=== PATIENT | male | born 1975 | race African-American/Black ===

== ENCOUNTER 2017-01-07 09:08 | Day surgery (SDC) | payer OTHER ==
[2017-01-06 10:25] VITALS: BMI 38.1
[2017-01-07] MEDS ORDERED: CEFAZOLIN/Water 2 GM/20 ML SYRINGE ONE (09:15)
[2017-01-07] MEDS ORDERED: Bupivacaine/Epinephrine 0.25% 30 ML VIAL ONE (09:28)
[2017-01-07] MEDS ORDERED: Bacitracin Zinc Ointment 30 gm TUBE ONE (09:28)
[2017-01-07 09:32] LABS: #Eosinphils 0.1 thou/uL (0.0-0.7); #Monocytes 0.4 thou/uL (0.11-0.59); %Basophils 0.9 % (0.0-1.0); %Eosinophils 1.4 % (0.0-10.0); %Lymphocytes 44.2 % (21.0-51.0); %Monocytes 8.5 % (0.0-10.0); Hematocrit 48.1 % (42.0-52.0); White Blood Cell (WBC) Count 4.5 thou/uL (4.8-10.8)
[2017-01-07 09:51] LABS: Anion Gap 11 mmol/L (10-20); BUN (Urea Nitrogen) 13 mg/dL (8.9-20.6); Calc. Creatinine Clearance 171 mL/min (70-130); Calcium 9.5 mg/dL (7.8-10.44); Carbon Dioxide 28 mmol/L (22-29); Chloride 103 mmol/L (98-107); Estimated GFR-MDRD 89
[2017-01-07] MEDS ORDERED: Fentanyl 250 MCG/5 ML VIAL ONE (09:56)
[2017-01-07] MEDS ORDERED: Fentanyl 100 MCG/2 ML VIAL ONE (15:11)
[2017-01-07] MEDS ORDERED: Propofol 200 MG/20 ML VIAL ONE (15:47)
[2017-01-07] MEDS ORDERED: Ondansetron HCl/PF 4 MG/2 ML Vial ONE (15:47)
[2017-01-07] MEDS ORDERED: Naloxone HCl 0.4 mg/ml Vial ONE (15:47)
[2017-01-07] MEDS ORDERED: PHENYLEPHRINE-NS 100 MCG/ML 10 ML SYRINGE ONE (15:47)
[2017-01-07] MEDS ORDERED: diphenhydrAMINE 50 MG/ML VIAL ONE (15:47)
[2017-01-07] MEDS ORDERED: Lidocaine 1% PF 5 ML VIAL ONE (15:47)
[2017-01-07] MEDS ORDERED: Ketorolac Tromethamine 30 MG/ML VIAL ONE (15:47)
[2017-01-07] MEDS ORDERED: Ondansetron ODT 4 MG TAB ONE (16:06)
== END 2017-01-07 16:27 | disposition home or self-care (01) ==
LOC: SDC 09:08
PROVIDERS: ATTEND Surgery
PROC: 0JB70ZZ Excision of Back Subcutaneous Tissue and Fascia, Open Approach (ICD-10-PCS; principal; 2017-01-07)
DX: R22.9 Localized swelling, mass and lump, unspecified (principal); E11.9 Type 2 diabetes mellitus without complications; I10 Essential (primary) hypertension; Z79.84 Long term (current) use of oral hypoglycemic drugs; Z79.899 Other long term (current) drug therapy; M79.81 Nontraumatic hematoma of soft tissue
CPT/HCPCS: 36415; 80048; 85025; 88304; 88305; 88307; 88331; 88341; 88342; 88360; 96374; J1200; J1885; J2001; J2310; J2405; J2704; J3010; Q0162

== ENCOUNTER 2017-01-20 11:57 | Inpatient (IN) | payer OTHER, SELFPAY ==
[2017-01-20 12:42] LABS: #Eosinphils 0.1 thou/uL (0.0-0.7); #Lymphocytes 1.7 thou/uL (1.20-3.40); #Monocytes 0.7 thou/uL (0.11-0.59); #Neutrophils 4.8 thou/uL (1.40-6.50); %Basophils 0.2 % (0.0-1.0); %Eosinophils 1.2 % (0.0-10.0); %Lymphocytes 22.6 % (21.0-51.0); Hematocrit 40.6 % (42.0-52.0); Mean Platelet Volume 6.7 fL (7.4-10.4); White Blood Cell (WBC) Count 7.3 thou/uL (4.8-10.8)
[2017-01-20 12:59] LABS: Lactic Acid - Sepsis 1.1 mmol/L (0.5-2.2)
[2017-01-20 13:01] LABS: Anion Gap 11 mmol/L (10-20); BUN (Urea Nitrogen) 12 mg/dL (8.9-20.6); Calc. Creatinine Clearance 0 mL/min (70-130); Calcium 9.5 mg/dL (7.8-10.44); Carbon Dioxide 32 mmol/L (22-29); Chloride 98 mmol/L (98-107); Estimated GFR-MDRD 80
[2017-01-20 15:53] LABS: Hemoglobin A1c 6.9 % (4.0-6.0)
[2017-01-20] MEDS ORDERED: Piperacillin/Tazobactam 3.375 GM in Sodium Chloride 0.9% 100 ML IVPB SCH ×2 (16:00→23:59)
[2017-01-20] MEDS ORDERED: PHENYLEPHRINE-NS 100 MCG/ML 10 ML SYRINGE ONE (16:39)
[2017-01-20] MEDS ORDERED: Propofol 200 MG/20 ML VIAL ONE (16:39)
[2017-01-20] MEDS ORDERED: Lidocaine 1% PF 5 ML VIAL ONE (16:39)
[2017-01-20] MEDS ORDERED: Succinylcholine Chloride 20 MG/ML 10 ml SYRINGE FS ONE (16:39)
[2017-01-20] MEDS ORDERED: Ondansetron HCl/PF 4 MG/2 ML Vial ONE (16:39)
[2017-01-20] MEDS ORDERED: Fentanyl 100 MCG/2 ML VIAL ONE (19:15)
[2017-01-20] MEDS ORDERED: Fentanyl 250 MCG/5 ML VIAL ONE (19:34)
[2017-01-20] MEDS ORDERED: Bupivacaine/Epinephrine 0.25% 30 ML VIAL ONE (20:30)
[2017-01-20] MEDS ORDERED: Ondansetron HCl/PF 4 MG/2 ML Vial IVP PRN (21:47)
[2017-01-20] MEDS ORDERED: Dextrose 50% Abboject 50 ML SYRINGE IVP PRN (21:49)
[2017-01-20] MEDS ORDERED: Dextrose 5% in Water 1,000 ML IV PRN (21:49)
[2017-01-20] MEDS ORDERED: HYDROcodone/Acetaminophen 7.5/325 mg Tablet PO PRN (21:50)
[2017-01-20] MEDS ORDERED: Morphine 4 MG/ML VIAL SLOW IVP PRN ×3 (21:51→21:52)
[2017-01-20] MEDS ORDERED: Ondansetron HCl/PF 4 MG/2 ML Vial SLOW IVP PRN (21:53)
[2017-01-21] MEDS: HYDROcodone/Acetaminophen 7.5/325 mg Tablet PO PRN ×3 (00:45→21:03)
[2017-01-21] MEDS: Sodium Chloride 0.9% 1,000 ML IV SCH ×5 (00:46→23:24)
[2017-01-21] MEDS: Piperacillin/Tazobactam 3.375 GM in Sodium Chloride 0.9% 100 ML IVPB SCH ×4 (01:26→21:05)
[2017-01-21 02:02] VITALS: BMI 38.7
[2017-01-21 05:42] LABS: #Eosinphils 0.1 thou/uL (0.0-0.7); #Lymphocytes 2.2 thou/uL (1.20-3.40); #Monocytes 1.2 thou/uL (0.11-0.59); #Neutrophils 7.8 thou/uL (1.40-6.50); %Eosinophils 0.5 % (0.0-10.0); %Lymphocytes 19.8 % (21.0-51.0); %Monocytes 10.4 % (0.0-10.0); Hematocrit 35.3 % (42.0-52.0); Red Blood Cell (RBC) Count 3.81 mill/uL (4.70-6.10); White Blood Cell (WBC) Count 11.2 thou/uL (4.8-10.8)
[2017-01-21 05:50] LABS: Anion Gap 9 mmol/L (10-20); BUN (Urea Nitrogen) 13 mg/dL (8.9-20.6); Calc. Creatinine Clearance 142 mL/min (70-130); Calcium 8.8 mg/dL (7.8-10.44); Carbon Dioxide 31 mmol/L (22-29); Chloride 99 mmol/L (98-107); Estimated GFR-MDRD 71
[2017-01-21] MEDS: Insulin Regular 300 UNITS/3 ML VIAL SC PRN ×3 (06:43→18:07)
[2017-01-21] MEDS: Pioglitazone HCl 15 MG TAB PO SCH (08:22)
[2017-01-21] MEDS: glipiZIDE 5 MG TAB PO SCH (08:22)
[2017-01-21] MEDS: Atorvastatin Calcium 20 MG TAB PO SCH (08:22)
[2017-01-21] MEDS: Lisinopril/Hydrochlorothiazide 20/25 mg Tablet PO SCH (08:23)
[2017-01-21] MEDS: Enoxaparin Sodium 40 MG/0.4 ML SYRINGE SC SCH (08:24)
[2017-01-21] MEDS ORDERED: Sodium Chloride 0.9% 1,000 ML IV SCH (09:15)
[2017-01-21] MEDS: Vancomycin HCl 2 GM, Admixture Fee 1 EACH in Sodium Chloride 0.9% 500 ML IVPB SCH ×2 (09:56→22:18)
[2017-01-22] MEDS: Piperacillin/Tazobactam 3.375 GM in Sodium Chloride 0.9% 100 ML IVPB SCH ×2 (01:46→10:00)
[2017-01-22] MEDS ORDERED: Clopidogrel Bisulfate 75 MG TAB ONE (06:51)
[2017-01-22] MEDS: Insulin Regular 300 UNITS/3 ML VIAL SC PRN ×2 (07:05→16:52)
[2017-01-22] MEDS: Pioglitazone HCl 15 MG TAB PO SCH (08:37)
[2017-01-22] MEDS: glipiZIDE 5 MG TAB PO SCH (08:37)
[2017-01-22] MEDS: Lisinopril/Hydrochlorothiazide 20/25 mg Tablet PO SCH (08:37)
[2017-01-22] MEDS: Atorvastatin Calcium 20 MG TAB PO SCH (08:38)
[2017-01-22] MEDS: Enoxaparin Sodium 40 MG/0.4 ML SYRINGE SC SCH (08:39)
[2017-01-22] MEDS: Sodium Chloride 0.9% 1,000 ML IV SCH (10:00)
[2017-01-22] MEDS ORDERED: Lidocaine 4% Topical Sol 50 ML BOT TOP PRN (11:43)
[2017-01-22] MEDS: HYDROcodone/Acetaminophen 7.5/325 mg Tablet PO PRN ×2 (11:44→20:40)
[2017-01-22] MEDS ORDERED: Morphine 4 MG/ML VIAL IM PRN (11:47)
[2017-01-22] MEDS: Vancomycin HCl 2 GM, Admixture Fee 1 EACH in Sodium Chloride 0.9% 500 ML IVPB SCH (11:48)
--- NOTE | 2017-01-22 12:09 | PRG ---
DATE OF SERVICE: 01/22/2017 SUBJECTIVE: Mr. Cr is feeling okay. Pain is under control. He is tolerating his VAC change and the wound appears clean. There is no odor, no purulent drainage, his cultures are growing MSSA and Acinetobacter, both are sensitive to fluoroquinolones. He has been afebrile. His vital signs are stable. Blood sugars have been in the 150-200 range. Creatinine yesterday was up a little bit, but he did get some extra IV fluids, so I am going to recheck labs in the morning. ASSESSMENT: Infected seroma of the back following excision of a massive fibroma. The patient does not have coverage for home wound VAC and we are applying for a [facility] wound VAC. We expect that this will be approved, but will likely take up to a week to approve. I am going to switch him to oral antibiotics since his IV has come out and his bacteria are sensitive to fluoroquinolones. We will discontinue his IV medications and convert him to all oral medications with IM morphine if needed for breakthrough pain for VAC changes. At this point, we are just awaiting approval for a home wound VAC for management of this large wound. We did discuss the possibility of doing wet-to- dry dressings, but in my opinion, this would significantly delay healing of the wound and the patient does not feel that her or his can do this. SUDHIR
--- NOTE | 2017-01-22 13:26 | OP ---
PROCEDURE: Incision, drainage, washout and VAC dressing placement for infected seroma of the right back PREOPERATIVE DIAGNOSIS: Infected seroma of right back. POSTOPERATIVE DIAGNOSIS: Infected seroma of the right back. HISTORY: Mr. Cr is a 42-year-old man who underwent excision of a massive fibroma from his right back. He developed pain and swelling 2 days before his presentation and was found to have evidence of an infected seroma. Recommendation was made to proceed to the operating room for incision, drainage , and washout due to the large size of the wound, with postoperative VAC placement. DESCRIPTION OF PROCEDURE: After informed consent was obtained and appropriate preoperative antibiotics administered, the patient was taken to the operating room. He was placed in a supine position and general endotracheal anesthesia was administered. He was then placed in the left lateral decubitus position with appropriate padding and elevation of his extremities and axillary padding. He was prepped and draped in a standard sterile fashion and the previous incision reopened centrally. A large seroma cavity was encountered. The MARCY drain was appropriately positioned within the seroma cavity, but there was some gelatinous fluid within the cavity which was likely making the MARCY drainage ineffective. The MARCY drain was removed and the cavity was completely evacuated. Cultures were sent and the wound was pulsavaced to clear. There were no areas of active bleeding and no asael purulence or odor, just slightly cloudy serosanguineous fluid and gelatinous material within the wound. A VAC dressing was then placed and the patient was extubated and taken to the recovery room in good condition. Estimated blood loss was minimal. Specimen is seroma fluid for Gram stain and culture. There were no complications. [facility]
[2017-01-23] MEDS: glipiZIDE 5 MG TAB PO SCH (08:13)
[2017-01-23] MEDS: Atorvastatin Calcium 20 MG TAB PO SCH (08:13)
[2017-01-23] MEDS: Lisinopril/Hydrochlorothiazide 20/25 mg Tablet PO SCH (08:13)
[2017-01-23] MEDS: Pioglitazone HCl 15 MG TAB PO SCH (08:13)
[2017-01-23] MEDS: Enoxaparin Sodium 40 MG/0.4 ML SYRINGE SC SCH (08:15)
[2017-01-23 09:58] LABS: #Eosinphils 0.1 thou/uL (0.0-0.7); #Lymphocytes 1.6 thou/uL (1.20-3.40); #Monocytes 0.4 thou/uL (0.11-0.59); #Neutrophils 3.2 thou/uL (1.40-6.50); %Basophils 0.4 % (0.0-1.0); %Eosinophils 2.4 % (0.0-10.0); %Monocytes 7.1 % (0.0-10.0); Hematocrit 37.7 % (42.0-52.0); Mean Platelet Volume 6.4 fL (7.4-10.4); Red Blood Cell (RBC) Count 4.08 mill/uL (4.70-6.10); White Blood Cell (WBC) Count 5.3 thou/uL (4.8-10.8)
[2017-01-23 10:09] LABS: Anion Gap 9 mmol/L (10-20); BUN (Urea Nitrogen) 9 mg/dL (8.9-20.6); Calc. Creatinine Clearance 172 mL/min (70-130); Carbon Dioxide 31 mmol/L (22-29); Chloride 104 mmol/L (98-107); Estimated GFR-MDRD 89
[2017-01-23] MEDS: HYDROcodone/Acetaminophen 7.5/325 mg Tablet PO PRN (20:33)
[2017-01-23] MEDS ORDERED: Calcium Carbonate 500 MG ChewTAB PO PRN ×2 (23:07→23:10)
[2017-01-24] MEDS: Saccharomyces boulardii 250 MG CAP PO SCH (08:32)
[2017-01-24] MEDS: glipiZIDE 5 MG TAB PO SCH (08:32)
[2017-01-24] MEDS: Atorvastatin Calcium 20 MG TAB PO SCH (08:32)
[2017-01-24] MEDS: Lisinopril/Hydrochlorothiazide 20/25 mg Tablet PO SCH (08:32)
[2017-01-24] MEDS: Pioglitazone HCl 15 MG TAB PO SCH (08:33)
[2017-01-24] MEDS: Enoxaparin Sodium 40 MG/0.4 ML SYRINGE SC SCH (08:33)
[2017-01-24] MEDS: HYDROcodone/Acetaminophen 7.5/325 mg Tablet PO PRN ×2 (11:00→21:18)
--- NOTE | 2017-01-24 20:43 | PRG ---
DATE OF SERVICE: 01/24/2017 Tera Cr is doing well today. He did have some diarrhea, and Dr. Jo ordered a stool C. dif ficile, but by this time, his diarrhea has resolved. He thinks that the diarrhea is related to food he ate, mainly grapes. Patient is no longer having loose stools. Abdomen is soft, nontender. He is awaiting his wound VAC for discharge.
[2017-01-25] MEDS: Saccharomyces boulardii 250 MG CAP PO SCH (08:43)
[2017-01-25] MEDS: Pioglitazone HCl 15 MG TAB PO SCH (08:44)
[2017-01-25] MEDS: Enoxaparin Sodium 40 MG/0.4 ML SYRINGE SC SCH (08:44)
[2017-01-25] MEDS: Atorvastatin Calcium 20 MG TAB PO SCH (08:44)
[2017-01-25] MEDS: Lisinopril/Hydrochlorothiazide 20/25 mg Tablet PO SCH (08:44)
[2017-01-25] MEDS: glipiZIDE 5 MG TAB PO SCH (08:47)
--- NOTE | 2017-01-25 13:40 | PRG ---
DATE OF SERVICE: 01/25/2017 SUBJECTIVE: Tera Cr is doing well today. He has no new complaints. OBJECTIVE: VITAL SIGNS: 97 degrees, 95, 140/93. Exam was unremarkable. Plan is to wait for wound VAC and possibly to discharge home tomorrow.
[2017-01-25] MEDS: HYDROcodone/Acetaminophen 7.5/325 mg Tablet PO PRN (21:06)
[2017-01-26] MEDS: glipiZIDE 5 MG TAB PO SCH (09:46)
[2017-01-26] MEDS: Saccharomyces boulardii 250 MG CAP PO SCH (09:46)
[2017-01-26] MEDS: Atorvastatin Calcium 20 MG TAB PO SCH (09:46)
[2017-01-26] MEDS: Pioglitazone HCl 15 MG TAB PO SCH (09:47)
[2017-01-26] MEDS: Enoxaparin Sodium 40 MG/0.4 ML SYRINGE SC SCH (09:47)
[2017-01-26] MEDS: Lisinopril/Hydrochlorothiazide 20/25 mg Tablet PO SCH (09:47)
[2017-01-26] MEDS: HYDROcodone/Acetaminophen 7.5/325 mg Tablet PO PRN (22:23)
[2017-01-27] MEDS: Saccharomyces boulardii 250 MG CAP PO SCH (08:26)
[2017-01-27] MEDS: Lisinopril/Hydrochlorothiazide 20/25 mg Tablet PO SCH (08:26)
[2017-01-27] MEDS: glipiZIDE 5 MG TAB PO SCH (08:26)
[2017-01-27] MEDS: Atorvastatin Calcium 20 MG TAB PO SCH (08:27)
[2017-01-27] MEDS: Enoxaparin Sodium 40 MG/0.4 ML SYRINGE SC SCH (08:27)
[2017-01-27] MEDS ORDERED: Pioglitazone HCl 15 MG TAB PO SCH (09:00)
[2017-01-27 12:07] VITALS: BP 123/79; TEMP 98.2
[2017-01-27] MEDS: Insulin Regular 300 UNITS/3 ML VIAL SC PRN (12:22)
--- NOTE | 2017-01-28 13:10 | DIS ---
HISTORY: Mr. Cr is a 42-year-old man who was admitted to the Surgery Service on 01/20/2017 for an infected seroma following excision of a massive fibroma from his right back. He underwent operat ta washout and drainage with VAC dressing placement postoperatively. He was maintained on IV antibi otics and VAC dressings until a home VAC was approved. This was anticipated to be available on , but due to shipping issues related to weather at the suppliers, this did not arrive until 01/28/20 17. He was discharged home with the home VAC in place and follow up in the outpatient Wound Care i [facility]. DISCHARGE MEDICATIONS: Include levofloxacin and pain medications. I will follow up with him in the outpatient Wound Care Clinic. He is to continue on his prehospital medications of atorvastatin, glip izide, lisinopril/hydrochlorothiazide, pioglitazone. He was also advised to continue on Florastor si nce he has had some diarrhea with his antibiotics. C. diff was checked during this admission was neg ative.
--- NOTE | 2017-01-31 14:30 | EKG ---
Test Reason : BACK PAIN Blood Pressure : / mmHG Vent. Rate : 095 BPM Atrial Rate : 095 BPM P-R Int : 166 ms QRS Dur : 086 ms QT Int : 344 ms P-R-T Axes : 034 006 -10 degrees QTc Int : 432 ms Normal sinus rhythm Minimal voltage criteria for LVH, may be normal variant Abnormal ECG Confirmed by ALINA BALLARD DO ([id number]), book editor NEDRA BELL ([id number]) on 01/31/2017 2:29:55 PM Referred By: NELLIE Confirmed By:ALINA BALLARD DO
== END 2017-01-27 15:33 | disposition home or self-care (01) | DRG 921 ==
LOC: ERS 11:57 → SDC 21:49 → SURG A 22:39
PROVIDERS: ADMIT Surgery; ATTEND Surgery
PROC: 0J973ZZ Drainage of Back Subcutaneous Tissue and Fascia, Percutaneous Approach (ICD-10-PCS; principal; 2017-01-22)
DX: L76.33 Postprocedural seroma of skin and subcutaneous tissue following a dermatologic procedure (principal); B95.61 Methicillin susceptible Staphylococcus aureus infection as the cause of diseases classified elsewhere; Y83.8 Other surgical procedures as the cause of abnormal reaction of the patient, or of later complication, without mention of misadventure at the time of the procedure; Y92.234 Operating room of hospital as the place of occurrence of the external cause
CPT/HCPCS: 36415; 36416; 80048; 83036; 83605; 85025; 87040; 87070; 87186; 87205; 87324; 87449; 93005; A4216; J1650; J1815; J2001; J2270; J2405; J2543; J2704; J3010; J3370; J7050

== ENCOUNTER 2017-01-29 14:49 | Outpatient (CLI) | payer OTHER | END 2017-01-29 14:50 | disposition home or self-care (01) | LOC: WCC 14:49 | PROVIDERS: ATTEND Family Medicine | DX: T81.89XD Other complications of procedures, not elsewhere classified, subsequent encounter (principal) | CPT/HCPCS: 36416; 97606 ==

== ENCOUNTER 2017-02-03 11:55 | Outpatient (CLI) | payer OTHER | END 2017-02-03 11:56 | disposition home or self-care (01) | LOC: WCC 11:55 | PROVIDERS: ATTEND Family Medicine | DX: T81.89XD Other complications of procedures, not elsewhere classified, subsequent encounter (principal) | CPT/HCPCS: 36416; 97605 ==

== ENCOUNTER 2017-02-05 11:44 | Outpatient (CLI) | payer OTHER ==
[2017-02-05] MEDS ORDERED: Sodium Chloride 0.9% 15 ML NEB ONE (13:36)
== END 2017-02-05 11:45 | disposition home or self-care (01) ==
LOC: WCC 11:44
PROVIDERS: ATTEND Family Medicine
DX: T81.89XD Other complications of procedures, not elsewhere classified, subsequent encounter (principal)
CPT/HCPCS: 36416; 97605; A4218

== ENCOUNTER 2017-02-10 10:59 | Outpatient (CLI) | payer OTHER | END 2017-02-10 11:00 | disposition home or self-care (01) | LOC: WCC 10:59 | PROVIDERS: ATTEND Family Medicine | DX: T81.89XD Other complications of procedures, not elsewhere classified, subsequent encounter (principal) | CPT/HCPCS: 36416; 97606 ==

== ENCOUNTER 2017-02-12 14:09 | Outpatient (CLI) | payer OTHER ==
--- NOTE | 2017-02-12 17:06 | HP ---
DATE OF SERVICE: 02/12/2017 HISTORY OF PRESENT ILLNESS: Mr. Tera Cr is a very pleasant 42-year-old gentleman who pr esents to the Wound Center for evaluation of a wound of the right back subsequent to incision and tamiko inage and washout for treatment of an infected seroma of the right back on 01/20/[address] Stephanie marroquin. At the time of surgery, Mr. Cr also underwent wound VAC placement. Upon discharge fro [facility], the patient was referred to the Wound Center for assistance with dressing changes of the wound VAC. Previously at the end of 12/2016, the patient had undergone exci gayatri of a massive fibroma of the right back also by Dr. Jo. The patient states that at the time of the surgical procedure, MARCY drain was placed. The patient states that he was discharged to home o n 01/27/2017 on levofloxacin which he completed taking as prescribed. PAST MEDICAL HISTORY: 1. Diabetes mellitus. 2. Hypertension. PAST SURGICAL HISTORY: 1. Incision and drainage, washout, VAC dressing placement for an infected seroma of right back on . 2. Excision of massive fibroma of right back in 12/2016. MEDICATIONS: 1. Lisinopril/HCTZ. 2. Atorvastatin. 3. Glipizide. 4. Pioglitazone. 5. Florastor. 6. P.O. pain medication. ALLERGIES: No known diagnosed allergies. SOCIAL HISTORY: Negative for tobacco use. The patient admits to the "social" consumption of alcohol . FAMILY HISTORY: Significant for diabetes mellitus. The patient states that he has an uncle who was diagnosed with diabetes mellitus. Family history is negative for coronary artery disease. PHYSICAL EXAMINATION: VITAL SIGNS: Temperature 98.2, pulse 90, respirations 16, blood pressure 141/90, Accu-Chek 186. GENERAL: A 42-year-old gentleman sitting on table in examination room in no acute distress. HEENT: Normocephalic, atraumatic. NECK: No nuchal rigidity. CHEST: Clear to auscultation. CARDIOVASCULAR: Regular rate and rhythm. ABDOMEN: Soft. EXTREMITIES: No clubbing or cyanosis. NEUROLOGIC: Grossly nonfocal. BACK: A wound of the right back is present which measures approximately 6.5 x 2.2 cm. A smaller wou nd is present which measures approximately 0.6 x 0.2 cm. Granulation tissue is present within the ma rgins of each wound. Nonviable tissue present within the margins of each wound was debrided with an excisional full-thickness debridement. No purulent drainage is associated with either wound. No tee thema of the skin surrounding either wound is present. No maceration of the skin of the periwound of either wound is noted. ASSESSMENT AND PLAN: 1. Wounds of right back as described above. Negative pressure therapy for both wounds will be irvin nued with dressing changes of the wound VAC 2 times per week here in the Wound Center. The wound VAC will be placed to settings of 125 mmHg, continuous. The patient will be seen by Dr. Jo in 1 we ek. I will see Jovon Tayo again in two weeks. 2. Diabetes mellitus. The patient's Accu-Chek in clinic today is 186. The patient has been told th at for optimal wound healing, his blood glucoses should remain below 150. 3. Hypertension.
== END 2017-02-12 14:10 | disposition home or self-care (01) ==
LOC: WCC 14:09
PROVIDERS: ATTEND Family Medicine
DX: T81.89XD Other complications of procedures, not elsewhere classified, subsequent encounter (principal); E11.9 Type 2 diabetes mellitus without complications; I10 Essential (primary) hypertension
CPT/HCPCS: 11042; 36416; 99204; G0463

== ENCOUNTER 2017-02-17 09:01 | Outpatient (CLI) | payer OTHER ==
[2017-02-17] MEDS ORDERED: Sodium Chloride 0.9% 15 ML NEB ONE (12:00)
== END 2017-02-17 09:02 | disposition home or self-care (01) ==
LOC: WCC 09:01
PROVIDERS: ATTEND Family Medicine
DX: T81.89XD Other complications of procedures, not elsewhere classified, subsequent encounter (principal)
CPT/HCPCS: 97606; A4218

== ENCOUNTER 2017-02-19 10:29 | Outpatient (CLI) | payer OTHER ==
[2017-02-19] MEDS ORDERED: Sodium Chloride 0.9% 15 ML NEB ONE (13:22)
== END 2017-02-19 10:30 | disposition home or self-care (01) ==
LOC: WCC 10:29
PROVIDERS: ATTEND Family Medicine
DX: T81.89XD Other complications of procedures, not elsewhere classified, subsequent encounter (principal)
CPT/HCPCS: 36416; 97605; A4218

== ENCOUNTER 2017-02-23 10:34 | Outpatient (CLI) | payer OTHER | END 2017-02-23 10:35 | disposition home or self-care (01) | LOC: WCC 10:34 | PROVIDERS: ATTEND Family Medicine | DX: T81.89XD Other complications of procedures, not elsewhere classified, subsequent encounter (principal) | CPT/HCPCS: 36416; 97605 ==

== ENCOUNTER 2017-02-26 10:33 | Outpatient (CLI) | payer OTHER | END 2017-02-26 10:34 | disposition home or self-care (01) | LOC: WCC 10:33 | PROVIDERS: ATTEND Family Medicine | DX: T81.89XD Other complications of procedures, not elsewhere classified, subsequent encounter (principal) | CPT/HCPCS: 36416; 97606 ==

== ENCOUNTER 2017-02-28 05:23 | Emergency (ER) | payer OTHER | END 2017-02-28 06:42 | disposition home or self-care (01) | LOC: ERS 05:23 | DX: T81.89XA Other complications of procedures, not elsewhere classified, initial encounter (principal); E11.9 Type 2 diabetes mellitus without complications; I10 Essential (primary) hypertension; Z79.899 Other long term (current) drug therapy | CPT/HCPCS: 99283 ==

== ENCOUNTER 2017-03-02 09:37 | Outpatient (CLI) | payer OTHER ==
[2017-03-02] MEDS ORDERED: Sodium Chloride 0.9% 15 ML NEB ONE (17:25)
== END 2017-03-02 09:38 | disposition home or self-care (01) ==
LOC: WCC 09:37
PROVIDERS: ATTEND Family Medicine
DX: T81.89XD Other complications of procedures, not elsewhere classified, subsequent encounter (principal)
CPT/HCPCS: 36416; 97605; A4218

== ENCOUNTER 2017-03-05 09:48 | Outpatient (CLI) | payer OTHER ==
--- NOTE | 2017-03-05 11:55 | PRG ---
DATE OF SERVICE: 03/05/2017 HISTORY: Mr. Tera Cr is a very pleasant 42-year-old gentleman, who presents to the Wound Ce nter for evaluation of a wound of the right back subsequent to incision and drainage and washout for treatment of an infected seroma of the right back on 01/20/[address] Stephanie Jo. At the time o f surgery, Mr. Cr also underwent wound VAC placement. Upon discharge from [facility], the patient was referred to the Wound Center for assistance with dressing changes of t he wound VAC. Previously at the end of 12/2016, the patient had undergone excision of a massive fibr tori of the right back, also by Dr. Jo. The patient stated that at the time of the surgical proc edure, a MARCY drain was placed. The patient stated that he was discharged to home on 01/27/2017 on lev ofloxacin, which he completed taking as prescribed. PHYSICAL EXAMINATION: VITAL SIGNS: Temperature 97.4, pulse 87, respirations 19, blood pressure 155/87. Accu-Chek 132. BACK: A wound of the right back is present, which measures approximately 4.5 x 2.0 cm. The dimensio ns of the wound at the time of the patient's visit on 02/12/2017 were approximately 6.5 x 2.2 cm. Th e depth of the wound is approximately 5 cm. Granulation tissue is present within the margins of the wound. Nonviable tissue present within the margins of the wound was debrided with an excisional full -thickness debridement. No purulent drainage is associated with the wound. No erythema of the skin surrounding the wound is present. No maceration of the skin of the periwound is noted. ASSESSMENT AND PLAN: 1. Wound of right back as described above. Negative pressure therapy will be continued with dressin g changes of the wound VAC 2 times per week here in the Wound Center. The wound VAC will be placed t o settings of 125 mmHg, continuous. The patient will be seen by Dr. Jo in 1 week. I will see Angel quan Tayo again in two weeks. 2. Diabetes mellitus. The patient's Accu-Chek in clinic today is 132. The patient has been reminde d that for optimal wound healing, his blood glucoses should remain below 150. 3. Hypertension.
== END 2017-03-05 09:49 | disposition home or self-care (01) ==
LOC: WCC 09:48
PROVIDERS: ATTEND Family Medicine
DX: T81.89XD Other complications of procedures, not elsewhere classified, subsequent encounter (principal); E11.69 Type 2 diabetes mellitus with other specified complication; I10 Essential (primary) hypertension
CPT/HCPCS: 11042; 36416

== ENCOUNTER 2017-03-09 11:06 | Outpatient (CLI) | payer OTHER ==
[2017-03-09] MEDS ORDERED: Sodium Chloride 0.9% 15 ML NEB ONE (16:56)
== END 2017-03-09 11:07 | disposition home or self-care (01) ==
LOC: WCC 11:06
PROVIDERS: ATTEND Family Medicine
DX: T81.89XD Other complications of procedures, not elsewhere classified, subsequent encounter (principal)
CPT/HCPCS: 36416; 97605; A4218

== ENCOUNTER 2017-03-12 09:52 | Outpatient (CLI) | payer OTHER | END 2017-03-12 09:53 | disposition home or self-care (01) | LOC: WCC 09:52 | PROVIDERS: ATTEND Family Medicine | DX: T81.89XD Other complications of procedures, not elsewhere classified, subsequent encounter (principal) | CPT/HCPCS: 36416; 97605 ==

== ENCOUNTER 2017-03-16 13:33 | Outpatient (CLI) | payer OTHER | END 2017-03-16 13:34 | disposition home or self-care (01) | LOC: WCC 13:33 | PROVIDERS: ATTEND Family Medicine | DX: T81.89XD Other complications of procedures, not elsewhere classified, subsequent encounter (principal) | CPT/HCPCS: 36416; 97605 ==

== ENCOUNTER 2017-03-19 13:58 | Outpatient (CLI) | payer OTHER ==
--- NOTE | 2017-03-19 14:35 | PRG ---
DATE OF SERVICE: 03/19/2017 HISTORY: Mr. Tera Cr is a very pleasant 42-year-old gentleman who presents to the Wound Center for evaluation of a wound of the right back subsequent to incision and drainage and washout for shivam tment of an infected seroma of the right back on 01/20/[address] Stephanie Jo. At the time of [facility], Mr. Cr also underwent wound VAC placement. Upon discharge from [facility], the patient was referred to the Wound Center for assistance with dressing changes of the w ound VAC. Previously at the end of 12/2016, the patient had undergone excision of a massive fibroma of the right back, also by Dr. Jo. The patient stated that at the time of the surgical procedur e, a MARCY drain was placed. The patient previously stated that he was discharged to home on 01/27/2017 on levofloxacin, which he completed taking as prescribed. PHYSICAL EXAMINATION: VITAL SIGNS: Temperature 98.2, pulse 104, respirations 18, and blood pressure 143/77. BACK: A wound of the right back is present which measures approximately 3.8 x 1.0 cm. The dimension s of the wound at the time of the patient's visit on 03/05/2017 were approximately 4.5 x 2.0 cm. Gra nulation tissue is present within the wound margins. Nonviable tissue present within the wound lenore ns was debrided with an excisional full-thickness debridement. No purulent drainage is associated wi th the wound. No erythema of the skin surrounding the wound is present. No maceration of the skin o f the periwound is noted. ASSESSMENT AND PLAN: 1. Wound of right back as described above. Negative pressure therapy will be continued with dressin g changes of the wound VAC 2 times per week here in the Wound Center. I will see Mr. Cr again after he has been seen by Dr. Jo. 2. Diabetes mellitus. Accu-Cheks will be obtained at the time of the patient's clinic visits. The patient has been reminded that for optimal wound healing, his blood glucoses should remain below 150. 3. Hypertension.
== END 2017-03-19 13:59 | disposition home or self-care (01) ==
LOC: WCC 13:58
PROVIDERS: ATTEND Family Medicine
DX: T81.89XD Other complications of procedures, not elsewhere classified, subsequent encounter (principal); E11.69 Type 2 diabetes mellitus with other specified complication; I10 Essential (primary) hypertension

== ENCOUNTER 2017-03-23 11:36 | Outpatient (CLI) | payer OTHER ==
[~2017-03-23 11:36] MED LIST: Sodium Chloride 0.9% 15 ML NEB ONE
== END 2017-03-23 11:37 | disposition home or self-care (01) ==
LOC: WCC 11:36
PROVIDERS: ATTEND Family Medicine
DX: T81.89XD Other complications of procedures, not elsewhere classified, subsequent encounter (principal)
CPT/HCPCS: 36416; 97605; A4218

== ENCOUNTER 2017-03-26 15:12 | Outpatient (CLI) | payer OTHER | END 2017-03-26 15:13 | disposition home or self-care (01) | LOC: WCC 15:12 | PROVIDERS: ATTEND Family Medicine | DX: T81.89XD Other complications of procedures, not elsewhere classified, subsequent encounter (principal) | CPT/HCPCS: 97602 ==